=== PATIENT | male | born 1930 | race Caucasian/White ===

== ENCOUNTER 2016-08-28 12:16 | Inpatient (IN) | payer MEDICARE ==
[2016-08-28] MEDS ORDERED: Senokot S 8.6-50 MG TAB PO PRN (15:45)
[2016-08-28] MEDS ORDERED: Bisacodyl 5 MG TAB PO PRN ×2 (15:45→16:50)
[2016-08-28] MEDS ORDERED: Bisacodyl 10 MG SUPP PR PRN ×2 (15:46→16:50)
[2016-08-28] MEDS ORDERED: SENNOSIDES PO PRN (16:50)
[2016-08-28] MEDS ORDERED: DOCUSATE SODIUM PO PRN (16:50)
[2016-08-28] MEDS ORDERED: HYDROcodone/Acetaminophen 5/325 mg Tablet PO PRN (16:50)
[2016-08-28] MEDS ORDERED: DEXAMETHASONE 2 MG PO SCH (17:00)
[2016-08-28] MEDS: Dexamethasone 4 MG TAB PO SCH (18:26)
[2016-08-28] MEDS: Metoprolol Tartrate 25 MG TAB PO SCH (20:52)
[2016-08-28] MEDS: Docusate 100 MG CAP PO SCH (20:52)
[2016-08-28] MEDS: Levemir Flexpen 100 UNITS/ML PEN SC SCH (20:53)
[2016-08-28] MEDS ORDERED: Docusate 100 MG CAP PO SCH (21:00)
[2016-08-28] MEDS ORDERED: Non-Formulary Item 1 EACH (Insulin Detemir 100 Units/Ml [Levemir] 10 UNITS) SC SCH (21:00)
[2016-08-28] MEDS ORDERED: Metoprolol Tartrate 25 MG TAB PO SCH (21:00)
[2016-08-29] MEDS: HYDROcodone/Acetaminophen 5/325 mg Tablet PO PRN (07:45)
[2016-08-29] MEDS: Allopurinol 100 MG TAB PO SCH ×2 (07:46→07:48)
[2016-08-29] MEDS: Metoprolol Tartrate 25 MG TAB PO SCH ×2 (07:47→21:34)
[2016-08-29] MEDS: Tamsulosin HCl 0.4 MG CAP PO SCH (07:47)
[2016-08-29] MEDS: Dexamethasone 4 MG TAB PO SCH ×2 (07:48→17:17)
[2016-08-29] MEDS ORDERED: Non-Formulary Item 1 EACH (Insulin Detemir 100 Units/Ml [Levemir] 15 UNITS) SC SCH (09:00)
[2016-08-29] MEDS ORDERED: Tamsulosin HCl 0.4 MG CAP PO SCH (09:00)
[2016-08-29] MEDS ORDERED: ALLOPURINOL 300 MG PO SCH (09:00)
[2016-08-29] MEDS: Levemir Flexpen 100 UNITS/ML PEN SC SCH ×2 (09:28→21:33)
[2016-08-29] MEDS ORDERED: Insulin Regular 300 UNITS/3 ML VIAL ONE (12:52)
[2016-08-29] MEDS: HumaLOG 300 UNITS/3 ML VIAL SC PRN ×2 (12:58→17:39)
[2016-08-29] MEDS: Enoxaparin Sodium 30 MG/0.3 ML SYRINGE SC SCH (17:19)
[2016-08-29] MEDS: Docusate 100 MG CAP PO SCH (21:34)
[2016-08-30] MEDS: Nystatin Powder 15 GM BOT TOP PRN (01:56)
[2016-08-30] MEDS: HYDROcodone/Acetaminophen 5/325 mg Tablet PO PRN ×2 (02:42→15:04)
[2016-08-30] MEDS: Allopurinol 100 MG TAB PO SCH (08:49)
[2016-08-30] MEDS: Dexamethasone 4 MG TAB PO SCH ×2 (08:50→17:33)
[2016-08-30] MEDS: Metoprolol Tartrate 25 MG TAB PO SCH ×2 (08:50→20:47)
[2016-08-30] MEDS: Tamsulosin HCl 0.4 MG CAP PO SCH (08:50)
[2016-08-30] MEDS: Levemir Flexpen 100 UNITS/ML PEN SC SCH ×2 (08:51→20:49)
[2016-08-30] MEDS: HumaLOG 300 UNITS/3 ML VIAL SC PRN ×2 (12:38→17:54)
[2016-08-30] MEDS: Enoxaparin Sodium 30 MG/0.3 ML SYRINGE SC SCH (17:33)
[2016-08-30] MEDS: Docusate 100 MG CAP PO SCH (20:47)
[2016-08-31] MEDS: Levemir Flexpen 100 UNITS/ML PEN SC SCH ×2 (08:46→21:06)
[2016-08-31] MEDS: Dexamethasone 4 MG TAB PO SCH ×2 (08:49→17:54)
[2016-08-31] MEDS: Tamsulosin HCl 0.4 MG CAP PO SCH (08:50)
[2016-08-31] MEDS: Metoprolol Tartrate 25 MG TAB PO SCH ×2 (08:50→21:05)
[2016-08-31] MEDS: Allopurinol 100 MG TAB PO SCH (08:50)
[2016-08-31] MEDS: HYDROcodone/Acetaminophen 5/325 mg Tablet PO PRN (14:37)
[2016-08-31] MEDS: Enoxaparin Sodium 30 MG/0.3 ML SYRINGE SC SCH (17:54)
[2016-08-31] MEDS: Docusate 100 MG CAP PO SCH (21:05)
[2016-09-01] MEDS: HYDROcodone/Acetaminophen 5/325 mg Tablet PO PRN (01:13)
[2016-09-01] MEDS: Dexamethasone 4 MG TAB PO SCH ×2 (08:53→17:55)
[2016-09-01] MEDS: Metoprolol Tartrate 25 MG TAB PO SCH ×2 (08:54→21:22)
[2016-09-01] MEDS: Allopurinol 100 MG TAB PO SCH (08:56)
[2016-09-01] MEDS: Tamsulosin HCl 0.4 MG CAP PO SCH (08:58)
[2016-09-01] MEDS: Levemir Flexpen 100 UNITS/ML PEN SC SCH ×2 (08:59→21:22)
[2016-09-01] MEDS: HumaLOG 300 UNITS/3 ML VIAL SC PRN (09:05)
[2016-09-01] MEDS: Enoxaparin Sodium 30 MG/0.3 ML SYRINGE SC SCH (17:55)
[2016-09-01] MEDS: Docusate 100 MG CAP PO SCH (21:22)
[2016-09-02] MEDS: HYDROcodone/Acetaminophen 5/325 mg Tablet PO PRN ×2 (04:22→22:35)
[2016-09-02] MEDS: Allopurinol 100 MG TAB PO SCH (08:42)
[2016-09-02] MEDS: Dexamethasone 4 MG TAB PO SCH ×2 (08:43→18:50)
[2016-09-02] MEDS: Tamsulosin HCl 0.4 MG CAP PO SCH (08:43)
[2016-09-02] MEDS: Metoprolol Tartrate 25 MG TAB PO SCH ×2 (08:43→20:33)
[2016-09-02] MEDS: Levemir Flexpen 100 UNITS/ML PEN SC SCH ×2 (08:50→20:31)
[2016-09-02] MEDS: Nystatin Powder 15 GM BOT TOP PRN (15:47)
[2016-09-02] MEDS: Enoxaparin Sodium 30 MG/0.3 ML SYRINGE SC SCH (18:50)
[2016-09-02] MEDS: HumaLOG 300 UNITS/3 ML VIAL SC PRN (20:31)
[2016-09-02] MEDS: Docusate 100 MG CAP PO SCH (20:34)
[2016-09-03] MEDS: Colchicine 0.6 MG TAB PO SCH ×2 (08:10→10:48)
[2016-09-03] MEDS: Allopurinol 100 MG TAB PO SCH (08:11)
[2016-09-03] MEDS: Dexamethasone 4 MG TAB PO SCH (08:12)
[2016-09-03] MEDS: Metoprolol Tartrate 25 MG TAB PO SCH ×2 (08:12→20:41)
[2016-09-03] MEDS: Tamsulosin HCl 0.4 MG CAP PO SCH (08:12)
[2016-09-03] MEDS: HYDROcodone/Acetaminophen 5/325 mg Tablet PO PRN ×2 (08:13→22:53)
[2016-09-03] MEDS: Levemir Flexpen 100 UNITS/ML PEN SC SCH ×2 (08:14→20:40)
[2016-09-03 08:46] LABS: ALT (SGPT) 52 U/L (8-55); AST (SGOT) 22 U/L (5-34); Albumin 3.3 g/dL (3.4-4.8); Alkaline Phosphatase 48 U/L (40-150); Anion Gap 12 mmol/L (10-20); BUN (Urea Nitrogen) 16 mg/dL (8.4-25.7); Bilirubin, Total 1.1 mg/dL (0.2-1.2); Calc. Creatinine Clearance 58 mL/min (70-130); Calcium 8.9 mg/dL (7.8-10.44); Carbon Dioxide 25 mmol/L (23-31); Chloride 101 mmol/L (98-107); Estimated GFR-MDRD Greater than 90; Globulin 3.4 g/dL (2.4-3.5); Glucose 143 mg/dL (83-110); Potassium 4.1 mmol/L (3.5-5.1); Protein, Total 6.7 g/dL (5.8-8.1); Sodium 134 mmol/L (136-145); Uric Acid 2.2 mg/dL (3.5-7.2)
[2016-09-03 08:59] LABS: Hemoglobin 14.1 g/dL (14.0-18.0); Mean Corpuscular HGB CONC 33.5 g/dL (32.0-36.0); Mean Corpuscular Hemoglobin 26.4 pg (27.0-31.0); Mean Corpuscular Volume 78.7 fl (80.0-94.0); Mean Platelet Volume 7.8 fL (7.4-10.4); Platelet Count 170 thou/uL (130-400); RBC Distribution Width 12.6 % (11.5-14.5); Red Blood Cell (RBC) Count 5.33 mill/uL (4.70-6.10); White Blood Cell (WBC) Count 4.2 thou/uL (4.8-10.8)
[2016-09-03 09:26] LABS: Lymphocytes 7 % (21-51); MDiff Complete? YES; Monocytes 18 % (0-10); Neutrophil 75 % (42-75); PLT Morphology Comment Appears Adequate; RBC Morphology Normal
[2016-09-03] MEDS: HumaLOG 300 UNITS/3 ML VIAL SC PRN (17:44)
[2016-09-03] MEDS: Enoxaparin Sodium 30 MG/0.3 ML SYRINGE SC SCH (17:46)
[2016-09-03] MEDS: Docusate 100 MG CAP PO SCH (20:41)
[2016-09-03] MEDS: Nystatin Powder 15 GM BOT TOP PRN (20:44)
--- NOTE | 2016-09-03 21:18 | RAD ---
RIGHT KNEE TWO VIEWS: Date: 09-03-16 FINDINGS: There is marked swelling around the knee including a large joint effusion. There is some faint calci fication seen in what I presumed to be the suprapatellar bursa. Moderately severe arthritic changes are present consisting of osteophytes and some medial joint space narrowing. Large patellofemoral os teophytes are present. No fracture or area of bony destruction was seen. Dense arterial calcificatio ns are noted. IMPRESSION: 1. Significant swelling and significant joint effusion. 2. Moderate arthritic changes as noted. POS: HOME
[2016-09-04] MEDS: Allopurinol 100 MG TAB PO SCH (08:28)
[2016-09-04] MEDS: Tamsulosin HCl 0.4 MG CAP PO SCH (08:29)
[2016-09-04] MEDS: Dexamethasone 4 MG TAB PO SCH (08:29)
[2016-09-04] MEDS: Metoprolol Tartrate 25 MG TAB PO SCH ×2 (08:29→20:57)
[2016-09-04] MEDS: traMADol HCl 50 MG TAB PO PRN (08:30)
[2016-09-04] MEDS: Levemir Flexpen 100 UNITS/ML PEN SC SCH ×2 (08:33→20:56)
[2016-09-04] MEDS ORDERED: Polyethylene Glycol 3350 17 GM Packet PO SCH (10:00)
[2016-09-04] MEDS ORDERED: Colchicine 0.6 MG TAB PO SCH ×2 (10:00→11:00)
[2016-09-04] MEDS: HYDROcodone/Acetaminophen 5/325 mg Tablet PO PRN (14:31)
[2016-09-04] MEDS: Enoxaparin Sodium 30 MG/0.3 ML SYRINGE SC SCH (17:58)
[2016-09-04] MEDS: HumaLOG 300 UNITS/3 ML VIAL SC PRN (17:59)
[2016-09-04] MEDS: Docusate 100 MG CAP PO SCH (20:57)
[2016-09-05] MEDS: Metoprolol Tartrate 25 MG TAB PO SCH ×2 (08:58→20:54)
[2016-09-05] MEDS: Tamsulosin HCl 0.4 MG CAP PO SCH (08:58)
[2016-09-05] MEDS: Allopurinol 100 MG TAB PO SCH (08:58)
[2016-09-05] MEDS: Dexamethasone 4 MG TAB PO SCH (08:59)
[2016-09-05] MEDS: Polyethylene Glycol 3350 17 GM Packet PO SCH (09:00)
[2016-09-05] MEDS: Levemir Flexpen 100 UNITS/ML PEN SC SCH ×2 (09:00→21:00)
[2016-09-05] MEDS: HYDROcodone/Acetaminophen 5/325 mg Tablet PO PRN ×2 (14:04→20:59)
[2016-09-05] MEDS: HumaLOG 300 UNITS/3 ML VIAL SC PRN (17:46)
[2016-09-05] MEDS: Enoxaparin Sodium 30 MG/0.3 ML SYRINGE SC SCH (19:25)
[2016-09-05] MEDS: Docusate 100 MG CAP PO SCH (20:54)
[2016-09-06] MEDS: HYDROcodone/Acetaminophen 5/325 mg Tablet PO PRN ×2 (05:00→14:31)
[2016-09-06] MEDS: Tamsulosin HCl 0.4 MG CAP PO SCH (09:19)
[2016-09-06] MEDS: Metoprolol Tartrate 25 MG TAB PO SCH ×2 (09:20→21:41)
[2016-09-06] MEDS: Polyethylene Glycol 3350 17 GM Packet PO SCH (09:20)
[2016-09-06] MEDS: Levemir Flexpen 100 UNITS/ML PEN SC SCH ×2 (09:23→21:41)
[2016-09-06] MEDS: Dexamethasone 4 MG TAB PO SCH ×2 (09:29→09:30)
[2016-09-06] MEDS: Allopurinol 100 MG TAB PO SCH (09:31)
[2016-09-06] MEDS: HumaLOG 300 UNITS/3 ML VIAL SC PRN (18:02)
[2016-09-06] MEDS: Enoxaparin Sodium 30 MG/0.3 ML SYRINGE SC SCH (18:37)
[2016-09-06] MEDS: Docusate 100 MG CAP PO SCH (21:41)
[2016-09-07] MEDS ORDERED: Dexamethasone 4 MG TAB PO SCH (09:00)
[2016-09-07] MEDS: Levemir Flexpen 100 UNITS/ML PEN SC SCH ×2 (09:33→21:08)
[2016-09-07] MEDS: Metoprolol Tartrate 25 MG TAB PO SCH ×2 (09:34→21:05)
[2016-09-07] MEDS: Tamsulosin HCl 0.4 MG CAP PO SCH (09:34)
[2016-09-07] MEDS: Allopurinol 100 MG TAB PO SCH (09:34)
[2016-09-07] MEDS: Polyethylene Glycol 3350 17 GM Packet PO SCH (09:39)
[2016-09-07] MEDS: HYDROcodone/Acetaminophen 5/325 mg Tablet PO PRN ×2 (14:19→23:23)
[2016-09-07] MEDS: HumaLOG 300 UNITS/3 ML VIAL SC PRN ×2 (17:58→21:15)
[2016-09-07] MEDS: Enoxaparin Sodium 30 MG/0.3 ML SYRINGE SC SCH (17:59)
[2016-09-07] MEDS: Docusate 100 MG CAP PO SCH (21:05)
[2016-09-08] MEDS: Allopurinol 100 MG TAB PO SCH (08:30)
[2016-09-08] MEDS: Tamsulosin HCl 0.4 MG CAP PO SCH (08:30)
[2016-09-08] MEDS: Dexamethasone 4 MG TAB PO SCH (08:31)
[2016-09-08] MEDS: Metoprolol Tartrate 25 MG TAB PO SCH ×2 (08:31→21:21)
[2016-09-08] MEDS: Polyethylene Glycol 3350 17 GM Packet PO SCH (08:33)
[2016-09-08] MEDS: Levemir Flexpen 100 UNITS/ML PEN SC SCH ×2 (08:34→21:20)
[2016-09-08] MEDS: HumaLOG 300 UNITS/3 ML VIAL SC PRN (18:10)
[2016-09-08] MEDS: Enoxaparin Sodium 30 MG/0.3 ML SYRINGE SC SCH (18:12)
[2016-09-08] MEDS: Docusate 100 MG CAP PO SCH (21:21)
[2016-09-09] MEDS: Levemir Flexpen 100 UNITS/ML PEN SC SCH ×2 (08:30→21:05)
[2016-09-09] MEDS: Allopurinol 100 MG TAB PO SCH (08:32)
[2016-09-09] MEDS: Tamsulosin HCl 0.4 MG CAP PO SCH (08:32)
[2016-09-09] MEDS: Metoprolol Tartrate 25 MG TAB PO SCH ×2 (08:33→21:05)
[2016-09-09] MEDS: Polyethylene Glycol 3350 17 GM Packet PO SCH (08:33)
[2016-09-09] MEDS: Enoxaparin Sodium 30 MG/0.3 ML SYRINGE SC SCH (17:31)
[2016-09-09] MEDS: HumaLOG 300 UNITS/3 ML VIAL SC PRN (17:53)
[2016-09-09] MEDS: Docusate 100 MG CAP PO SCH (21:06)
[2016-09-10] MEDS: Dexamethasone 4 MG TAB PO SCH (09:49)
[2016-09-10] MEDS: Allopurinol 100 MG TAB PO SCH (09:50)
[2016-09-10] MEDS: Tamsulosin HCl 0.4 MG CAP PO SCH (09:50)
[2016-09-10] MEDS: Metoprolol Tartrate 25 MG TAB PO SCH ×3 (09:51→21:02)
[2016-09-10] MEDS: Levemir Flexpen 100 UNITS/ML PEN SC SCH ×2 (09:55→21:02)
[2016-09-10] MEDS: Polyethylene Glycol 3350 17 GM Packet PO SCH (09:55)
[2016-09-10] MEDS: HYDROcodone/Acetaminophen 5/325 mg Tablet PO PRN (14:26)
[2016-09-10] MEDS: Enoxaparin Sodium 30 MG/0.3 ML SYRINGE SC SCH (17:51)
[2016-09-10] MEDS: HumaLOG 300 UNITS/3 ML VIAL SC PRN (17:52)
[2016-09-10] MEDS: Docusate 100 MG CAP PO SCH (21:01)
[2016-09-11] MEDS: traMADol HCl 50 MG TAB PO PRN (02:08)
[2016-09-11] MEDS: Polyethylene Glycol 3350 17 GM Packet PO SCH (08:52)
[2016-09-11] MEDS: Allopurinol 100 MG TAB PO SCH (08:53)
[2016-09-11] MEDS: Tamsulosin HCl 0.4 MG CAP PO SCH (08:53)
[2016-09-11] MEDS: Metoprolol Tartrate 25 MG TAB PO SCH ×2 (08:53→21:33)
[2016-09-11] MEDS: Levemir Flexpen 100 UNITS/ML PEN SC SCH ×2 (08:54→21:33)
[2016-09-11] MEDS: HYDROcodone/Acetaminophen 5/325 mg Tablet PO PRN (13:32)
[2016-09-11] MEDS: Enoxaparin Sodium 30 MG/0.3 ML SYRINGE SC SCH (16:46)
[2016-09-11] MEDS: HumaLOG 300 UNITS/3 ML VIAL SC PRN (17:15)
[2016-09-11] MEDS: Docusate 100 MG CAP PO SCH (21:33)
[2016-09-12] MEDS: Tamsulosin HCl 0.4 MG CAP PO SCH (08:53)
[2016-09-12] MEDS: Dexamethasone 4 MG TAB PO SCH (08:53)
[2016-09-12] MEDS: Allopurinol 100 MG TAB PO SCH (08:54)
[2016-09-12] MEDS: Metoprolol Tartrate 25 MG TAB PO SCH ×2 (08:54→20:25)
[2016-09-12] MEDS: Polyethylene Glycol 3350 17 GM Packet PO SCH (08:56)
[2016-09-12] MEDS: Levemir Flexpen 100 UNITS/ML PEN SC SCH ×2 (08:59→20:29)
[2016-09-12 11:57] LABS: Bilirubin Negative (Negative); Blood, Urine Large (Negative); Clarity Cloudy (Clear); Glucose, Urine (Dipstick) Negative (Negative); Leukocyte Large (Negative); Nitrite Positive (Negative); Protein, Urine (Dipstick) 100 mg/dL (Neg-Trace)
[2016-09-12 12:05] LABS: Bacteria/HPF 2+ HPF (None Seen)
[2016-09-12 12:06] LABS: Crystals/HPF 1+ CA OXALATE HPF (Negative); Squamous Epithelial 0-3 HPF (0-3)
[2016-09-12] MEDS: HYDROcodone/Acetaminophen 5/325 mg Tablet PO PRN (14:53)
[2016-09-12] MEDS: Neomycin-Polymyxin-Hc 7.5 ML BOT R EYE SCH ×2 (18:21→20:26)
[2016-09-12] MEDS: HumaLOG 300 UNITS/3 ML VIAL SC PRN (18:32)
[2016-09-12] MEDS: Enoxaparin Sodium 30 MG/0.3 ML SYRINGE SC SCH (18:33)
[2016-09-12] MEDS: Docusate 100 MG CAP PO SCH (20:25)
[2016-09-13] MEDS: Neomycin-Polymyxin-Hc 7.5 ML BOT R EYE SCH ×7 (02:00→21:13)
[2016-09-13] MEDS: Levemir Flexpen 100 UNITS/ML PEN SC SCH ×2 (08:34→21:39)
[2016-09-13] MEDS: Metoprolol Tartrate 25 MG TAB PO SCH ×2 (08:37→21:12)
[2016-09-13] MEDS: Tamsulosin HCl 0.4 MG CAP PO SCH (08:37)
[2016-09-13] MEDS: Sulfameth/Trimethoprim DS 800-160mg TAB PO SCH ×2 (08:37→21:12)
[2016-09-13] MEDS: Polyethylene Glycol 3350 17 GM Packet PO SCH (08:38)
[2016-09-13] MEDS: Allopurinol 100 MG TAB PO SCH (08:38)
[2016-09-13] MEDS: Enoxaparin Sodium 30 MG/0.3 ML SYRINGE SC SCH (17:47)
[2016-09-13] MEDS: HumaLOG 300 UNITS/3 ML VIAL SC PRN (17:52)
[2016-09-13] MEDS: Docusate 100 MG CAP PO SCH (21:12)
[2016-09-14] MEDS: Neomycin-Polymyxin-Hc 7.5 ML BOT R EYE SCH ×6 (01:03→20:54)
[2016-09-14] MEDS: Levemir Flexpen 100 UNITS/ML PEN SC SCH ×2 (08:51→20:54)
[2016-09-14] MEDS: Sulfameth/Trimethoprim DS 800-160mg TAB PO SCH ×2 (08:54→20:53)
[2016-09-14] MEDS: Polyethylene Glycol 3350 17 GM Packet PO SCH (08:54)
[2016-09-14] MEDS: Metoprolol Tartrate 25 MG TAB PO SCH ×2 (08:54→20:52)
[2016-09-14] MEDS: Allopurinol 100 MG TAB PO SCH (08:54)
[2016-09-14] MEDS: Tamsulosin HCl 0.4 MG CAP PO SCH (08:54)
[2016-09-14] MEDS: Dexamethasone 4 MG TAB PO SCH (08:54)
[2016-09-14] MEDS: traMADol HCl 50 MG TAB PO PRN (14:24)
[2016-09-14] MEDS: Enoxaparin Sodium 30 MG/0.3 ML SYRINGE SC SCH (19:13)
[2016-09-14] MEDS: Docusate 100 MG CAP PO SCH (20:52)
[2016-09-15] MEDS: Neomycin-Polymyxin-Hc 7.5 ML BOT R EYE SCH ×6 (01:23→21:08)
[2016-09-15] MEDS: Levemir Flexpen 100 UNITS/ML PEN SC SCH ×2 (08:43→21:05)
[2016-09-15] MEDS: Tamsulosin HCl 0.4 MG CAP PO SCH (08:43)
[2016-09-15] MEDS: Metoprolol Tartrate 25 MG TAB PO SCH ×2 (08:44→21:00)
[2016-09-15] MEDS: Sulfameth/Trimethoprim DS 800-160mg TAB PO SCH ×2 (08:44→21:01)
[2016-09-15] MEDS: Allopurinol 100 MG TAB PO SCH (08:44)
[2016-09-15] MEDS: Polyethylene Glycol 3350 17 GM Packet PO SCH (08:46)
[2016-09-15] MEDS: Enoxaparin Sodium 30 MG/0.3 ML SYRINGE SC SCH (17:36)
[2016-09-15] MEDS: Docusate 100 MG CAP PO SCH (21:00)
[2016-09-15] MEDS: HYDROcodone/Acetaminophen 5/325 mg Tablet PO PRN (22:50)
[2016-09-15] MEDS: Lorazepam 0.5 MG TAB PO PRN (23:36)
[2016-09-16] MEDS: Neomycin-Polymyxin-Hc 7.5 ML BOT R EYE SCH ×5 (05:56→20:40)
[2016-09-16] MEDS: Metoprolol Tartrate 25 MG TAB PO SCH ×2 (09:00→20:39)
[2016-09-16] MEDS: Allopurinol 100 MG TAB PO SCH (09:00)
[2016-09-16] MEDS: Levemir Flexpen 100 UNITS/ML PEN SC SCH ×2 (09:01→23:29)
[2016-09-16] MEDS: Dexamethasone 4 MG TAB PO SCH (09:01)
[2016-09-16] MEDS: Sulfameth/Trimethoprim DS 800-160mg TAB PO SCH ×2 (09:01→20:37)
[2016-09-16] MEDS: Tamsulosin HCl 0.4 MG CAP PO SCH (09:01)
[2016-09-16] MEDS: Polyethylene Glycol 3350 17 GM Packet PO SCH (09:03)
[2016-09-16] MEDS: HumaLOG 300 UNITS/3 ML VIAL SC PRN ×2 (17:30→20:46)
[2016-09-16] MEDS: Enoxaparin Sodium 30 MG/0.3 ML SYRINGE SC SCH (17:44)
[2016-09-16] MEDS: Docusate 100 MG CAP PO SCH (20:38)
[2016-09-17] MEDS: Neomycin-Polymyxin-Hc 7.5 ML BOT R EYE SCH ×6 (02:31→21:16)
[2016-09-17] MEDS: Allopurinol 100 MG TAB PO SCH (07:52)
[2016-09-17] MEDS: Tamsulosin HCl 0.4 MG CAP PO SCH (07:54)
[2016-09-17] MEDS: Sulfameth/Trimethoprim DS 800-160mg TAB PO SCH (07:54)
[2016-09-17] MEDS: Metoprolol Tartrate 25 MG TAB PO SCH ×2 (07:54→21:17)
[2016-09-17] MEDS: Polyethylene Glycol 3350 17 GM Packet PO SCH (07:55)
[2016-09-17] MEDS: Levemir Flexpen 100 UNITS/ML PEN SC SCH ×2 (07:58→21:15)
[2016-09-17] MEDS: Enoxaparin Sodium 30 MG/0.3 ML SYRINGE SC SCH (18:40)
[2016-09-17] MEDS: HumaLOG 300 UNITS/3 ML VIAL SC PRN (18:40)
[2016-09-17] MEDS: Cephalexin 250 MG CAP PO SCH (21:16)
[2016-09-17] MEDS: Docusate 100 MG CAP PO SCH (21:16)
[2016-09-18] MEDS: Neomycin-Polymyxin-Hc 7.5 ML BOT R EYE SCH ×7 (02:44→20:19)
[2016-09-18] MEDS: Polyethylene Glycol 3350 17 GM Packet PO SCH (08:45)
[2016-09-18] MEDS: Tamsulosin HCl 0.4 MG CAP PO SCH (08:45)
[2016-09-18] MEDS: Cephalexin 250 MG CAP PO SCH ×2 (08:46→20:19)
[2016-09-18] MEDS: Metoprolol Tartrate 25 MG TAB PO SCH ×2 (08:46→20:19)
[2016-09-18] MEDS: Allopurinol 100 MG TAB PO SCH (08:46)
[2016-09-18] MEDS: Dexamethasone 4 MG TAB PO SCH (08:46)
[2016-09-18] MEDS: Levemir Flexpen 100 UNITS/ML PEN SC SCH (08:53)
[2016-09-18] MEDS: Enoxaparin Sodium 30 MG/0.3 ML SYRINGE SC SCH (17:33)
[2016-09-18] MEDS: Docusate 100 MG CAP PO SCH (20:20)
[2016-09-18] MEDS: HumaLOG 300 UNITS/3 ML VIAL SC PRN (20:31)
[2016-09-19] MEDS: Neomycin-Polymyxin-Hc 7.5 ML BOT R EYE SCH ×6 (00:56→20:47)
[2016-09-19] MEDS: Cephalexin 250 MG CAP PO SCH ×2 (08:35→20:48)
[2016-09-19] MEDS: Tamsulosin HCl 0.4 MG CAP PO SCH (08:35)
[2016-09-19] MEDS: Levemir Flexpen 100 UNITS/ML PEN SC SCH (08:35)
[2016-09-19] MEDS: Metoprolol Tartrate 25 MG TAB PO SCH ×2 (08:35→20:47)
[2016-09-19] MEDS: Allopurinol 100 MG TAB PO SCH (08:35)
[2016-09-19] MEDS: Polyethylene Glycol 3350 17 GM Packet PO SCH (10:17)
[2016-09-19] MEDS: traMADol HCl 50 MG TAB PO PRN (15:49)
[2016-09-19] MEDS: Enoxaparin Sodium 30 MG/0.3 ML SYRINGE SC SCH (17:35)
[2016-09-19] MEDS: HumaLOG 300 UNITS/3 ML VIAL SC PRN (17:37)
[2016-09-19] MEDS: Docusate 100 MG CAP PO SCH (20:48)
[2016-09-20] MEDS: Neomycin-Polymyxin-Hc 7.5 ML BOT R EYE SCH ×6 (01:44→22:12)
[2016-09-20] MEDS: Levemir Flexpen 100 UNITS/ML PEN SC SCH (08:29)
[2016-09-20] MEDS: Allopurinol 100 MG TAB PO SCH (08:31)
[2016-09-20] MEDS: Dexamethasone 4 MG TAB PO SCH (08:32)
[2016-09-20] MEDS: Polyethylene Glycol 3350 17 GM Packet PO SCH (08:33)
[2016-09-20] MEDS: Cephalexin 250 MG CAP PO SCH ×2 (08:33→22:12)
[2016-09-20] MEDS: Tamsulosin HCl 0.4 MG CAP PO SCH (08:33)
[2016-09-20] MEDS: Metoprolol Tartrate 25 MG TAB PO SCH ×2 (08:33→22:12)
[2016-09-20] MEDS: HumaLOG 300 UNITS/3 ML VIAL SC PRN (17:35)
[2016-09-20] MEDS: Enoxaparin Sodium 30 MG/0.3 ML SYRINGE SC SCH (18:27)
[2016-09-20] MEDS: Docusate 100 MG CAP PO SCH (22:12)
[2016-09-21] MEDS: Neomycin-Polymyxin-Hc 7.5 ML BOT R EYE SCH ×6 (01:47→21:28)
[2016-09-21] MEDS: Cephalexin 250 MG CAP PO SCH ×2 (09:40→21:25)
[2016-09-21] MEDS: Allopurinol 100 MG TAB PO SCH (09:41)
[2016-09-21] MEDS: Metoprolol Tartrate 25 MG TAB PO SCH ×2 (09:41→21:28)
[2016-09-21] MEDS: Levemir Flexpen 100 UNITS/ML PEN SC SCH (09:41)
[2016-09-21] MEDS: Tamsulosin HCl 0.4 MG CAP PO SCH (09:41)
[2016-09-21] MEDS: Polyethylene Glycol 3350 17 GM Packet PO SCH (09:55)
[2016-09-21] MEDS: Enoxaparin Sodium 30 MG/0.3 ML SYRINGE SC SCH (17:52)
[2016-09-21] MEDS ORDERED: Neomycin-Polymyxin-Hc 7.5 ML BOT ONE (18:02)
[2016-09-21] MEDS: Docusate 100 MG CAP PO SCH (21:28)
[2016-09-22] MEDS: Neomycin-Polymyxin-Hc 7.5 ML BOT R EYE SCH ×6 (00:29→20:43)
[2016-09-22] MEDS: Dexamethasone 4 MG TAB PO SCH (09:09)
[2016-09-22] MEDS: Tamsulosin HCl 0.4 MG CAP PO SCH (09:09)
[2016-09-22] MEDS: Allopurinol 100 MG TAB PO SCH (09:10)
[2016-09-22] MEDS: Cephalexin 250 MG CAP PO SCH ×2 (09:10→20:41)
[2016-09-22] MEDS: Metoprolol Tartrate 25 MG TAB PO SCH ×2 (09:11→20:42)
[2016-09-22] MEDS: Levemir Flexpen 100 UNITS/ML PEN SC SCH (09:14)
[2016-09-22] MEDS: Polyethylene Glycol 3350 17 GM Packet PO SCH (09:42)
[2016-09-22] MEDS: Enoxaparin Sodium 30 MG/0.3 ML SYRINGE SC SCH (17:31)
[2016-09-22] MEDS: HumaLOG 300 UNITS/3 ML VIAL SC PRN (17:34)
[2016-09-22] MEDS: Docusate 100 MG CAP PO SCH (20:42)
[2016-09-23] MEDS: Neomycin-Polymyxin-Hc 7.5 ML BOT R EYE SCH ×6 (01:21→21:33)
[2016-09-23] MEDS: Polyethylene Glycol 3350 17 GM Packet PO SCH (09:04)
[2016-09-23] MEDS: Metoprolol Tartrate 25 MG TAB PO SCH ×2 (09:05→21:32)
[2016-09-23] MEDS: Allopurinol 100 MG TAB PO SCH (09:05)
[2016-09-23] MEDS: Tamsulosin HCl 0.4 MG CAP PO SCH (09:06)
[2016-09-23] MEDS: Cephalexin 250 MG CAP PO SCH ×2 (09:06→21:32)
[2016-09-23] MEDS: Levemir Flexpen 100 UNITS/ML PEN SC SCH (09:12)
[2016-09-23] MEDS: Lorazepam 0.5 MG TAB PO PRN (10:38)
[2016-09-23] MEDS: HumaLOG 300 UNITS/3 ML VIAL SC PRN (17:20)
[2016-09-23] MEDS: Enoxaparin Sodium 30 MG/0.3 ML SYRINGE SC SCH (17:21)
[2016-09-23] MEDS: Famotidine 20 MG TAB PO SCH (21:32)
[2016-09-23] MEDS: Nystatin Cream 15 GM TUBE TOP PRN (21:32)
[2016-09-23] MEDS: Docusate 100 MG CAP PO SCH (21:33)
[2016-09-24] MEDS: Neomycin-Polymyxin-Hc 7.5 ML BOT R EYE SCH ×6 (02:08→21:21)
[2016-09-24 03:25] VITALS: BMI 21.2
[2016-09-24] MEDS: Allopurinol 100 MG TAB PO SCH (09:30)
[2016-09-24] MEDS: Dexamethasone 4 MG TAB PO SCH (09:31)
[2016-09-24] MEDS: Cephalexin 250 MG CAP PO SCH ×2 (09:31→21:21)
[2016-09-24] MEDS: Tamsulosin HCl 0.4 MG CAP PO SCH (09:32)
[2016-09-24] MEDS: Metoprolol Tartrate 25 MG TAB PO SCH ×2 (09:32→21:21)
[2016-09-24] MEDS: Famotidine 20 MG TAB PO SCH ×2 (09:32→21:20)
[2016-09-24] MEDS: Polyethylene Glycol 3350 17 GM Packet PO SCH (09:33)
[2016-09-24] MEDS: Levemir Flexpen 100 UNITS/ML PEN SC SCH (09:35)
[2016-09-24] MEDS: Enoxaparin Sodium 30 MG/0.3 ML SYRINGE SC SCH (18:13)
[2016-09-24] MEDS: HumaLOG 300 UNITS/3 ML VIAL SC PRN (18:14)
[2016-09-24] MEDS: Nystatin Cream 15 GM TUBE TOP PRN (21:21)
[2016-09-24] MEDS: Docusate 100 MG CAP PO SCH (21:22)
[2016-09-25] MEDS: Neomycin-Polymyxin-Hc 7.5 ML BOT R EYE SCH ×4 (01:53→12:59)
[2016-09-25] MEDS: Levemir Flexpen 100 UNITS/ML PEN SC SCH (08:32)
[2016-09-25] MEDS: Cephalexin 250 MG CAP PO SCH ×2 (08:34→22:04)
[2016-09-25] MEDS: Metoprolol Tartrate 25 MG TAB PO SCH ×2 (08:34→22:04)
[2016-09-25] MEDS: Allopurinol 100 MG TAB PO SCH (08:34)
[2016-09-25] MEDS: Famotidine 20 MG TAB PO SCH ×2 (08:35→22:05)
[2016-09-25] MEDS: Tamsulosin HCl 0.4 MG CAP PO SCH (08:35)
[2016-09-25] MEDS: Lorazepam 0.5 MG TAB PO PRN (08:35)
[2016-09-25] MEDS: Polyethylene Glycol 3350 17 GM Packet PO SCH (08:36)
[2016-09-25] MEDS: Enoxaparin Sodium 30 MG/0.3 ML SYRINGE SC SCH (18:20)
[2016-09-25] MEDS: Nystatin Cream 15 GM TUBE TOP PRN (22:05)
[2016-09-25] MEDS: Docusate 100 MG CAP PO SCH (22:05)
[2016-09-26] MEDS: Levemir Flexpen 100 UNITS/ML PEN SC SCH (08:33)
[2016-09-26] MEDS: Cephalexin 250 MG CAP PO SCH (08:39)
[2016-09-26] MEDS: Famotidine 20 MG TAB PO SCH ×2 (08:39→21:11)
[2016-09-26] MEDS: Metoprolol Tartrate 25 MG TAB PO SCH ×2 (08:39→21:12)
[2016-09-26] MEDS: Dexamethasone 4 MG TAB PO SCH (08:39)
[2016-09-26] MEDS: Tamsulosin HCl 0.4 MG CAP PO SCH (08:40)
[2016-09-26] MEDS: Allopurinol 100 MG TAB PO SCH (08:40)
[2016-09-26] MEDS: Polyethylene Glycol 3350 17 GM Packet PO SCH (08:41)
[2016-09-26] MEDS: Enoxaparin Sodium 30 MG/0.3 ML SYRINGE SC SCH (18:22)
[2016-09-26] MEDS: Docusate 100 MG CAP PO SCH (21:10)
[2016-09-26] MEDS: Nystatin Cream 15 GM TUBE TOP PRN (21:42)
[2016-09-27] MEDS: Allopurinol 100 MG TAB PO SCH (08:25)
[2016-09-27] MEDS: Levemir Flexpen 100 UNITS/ML PEN SC SCH (08:25)
[2016-09-27] MEDS: Tamsulosin HCl 0.4 MG CAP PO SCH (08:25)
[2016-09-27] MEDS: Famotidine 20 MG TAB PO SCH ×2 (08:25→20:33)
[2016-09-27] MEDS: Metoprolol Tartrate 25 MG TAB PO SCH ×2 (08:25→20:33)
[2016-09-27] MEDS: Polyethylene Glycol 3350 17 GM Packet PO SCH (18:17)
[2016-09-27] MEDS: Enoxaparin Sodium 30 MG/0.3 ML SYRINGE SC SCH (18:18)
[2016-09-27] MEDS: Docusate 100 MG CAP PO SCH (20:33)
[2016-09-27] MEDS: Nystatin Cream 15 GM TUBE TOP PRN ×2 (23:34→23:35)
[2016-09-27] MEDS: Lorazepam 0.5 MG TAB PO PRN (23:35)
[2016-09-27] MEDS: Nystatin Powder 15 GM BOT TOP PRN ×2 (23:35→23:36)
[2016-09-28] MEDS: traMADol HCl 50 MG TAB PO PRN (03:11)
[2016-09-28] MEDS: Nystatin Powder 15 GM BOT TOP PRN ×3 (03:14→21:30)
[2016-09-28] MEDS: Nystatin Cream 15 GM TUBE TOP PRN ×2 (03:14→18:35)
[2016-09-28] MEDS: Levemir Flexpen 100 UNITS/ML PEN SC SCH (10:26)
[2016-09-28] MEDS: Allopurinol 100 MG TAB PO SCH (10:28)
[2016-09-28] MEDS: Tamsulosin HCl 0.4 MG CAP PO SCH (10:29)
[2016-09-28] MEDS: Metoprolol Tartrate 25 MG TAB PO SCH ×2 (10:29→21:27)
[2016-09-28] MEDS: Polyethylene Glycol 3350 17 GM Packet PO SCH (10:29)
[2016-09-28] MEDS: Enoxaparin Sodium 30 MG/0.3 ML SYRINGE SC SCH (18:35)
[2016-09-28] MEDS: Docusate 100 MG CAP PO SCH (21:27)
[2016-09-29] MEDS: HYDROcodone/Acetaminophen 5/325 mg Tablet PO PRN ×2 (00:52→11:24)
[2016-09-29] MEDS: Lorazepam 0.5 MG TAB PO PRN ×2 (00:52→08:49)
[2016-09-29 06:17] LABS: #Eosinphils 0.1 thou/uL (0.0-0.7); #Lymphocytes 1.3 thou/uL (1.20-3.40); #Monocytes 0.5 thou/uL (0.11-0.59); #Neutrophils 1.6 thou/uL (1.40-6.50); %Eosinophils 2.8 % (0.0-10.0); %Lymphocytes 36.4 % (21.0-51.0); %Monocytes 14.9 % (0.0-10.0); Hemoglobin 12.5 g/dL (14.0-18.0); Mean Corpuscular HGB CONC 34.5 g/dL (32.0-36.0); Mean Corpuscular Hemoglobin 27.2 pg (27.0-31.0); Mean Corpuscular Volume 78.9 fl (80.0-94.0); Mean Platelet Volume 6.9 fL (7.4-10.4); Platelet Count 135 thou/uL (130-400); RBC Distribution Width 14.9 % (11.5-14.5); Red Blood Cell (RBC) Count 4.59 mill/uL (4.70-6.10); White Blood Cell (WBC) Count 3.6 thou/uL (4.8-10.8)
[2016-09-29 07:04] LABS: ALT (SGPT) 44 U/L (8-55); AST (SGOT) 20 U/L (5-34); Albumin 3.1 g/dL (3.4-4.8); Alkaline Phosphatase 52 U/L (40-150); Anion Gap 15 mmol/L (10-20); BUN (Urea Nitrogen) 19 mg/dL (8.4-25.7); Bilirubin, Total 0.6 mg/dL (0.2-1.2); Calc. Creatinine Clearance 60 mL/min (70-130); Calcium 8.5 mg/dL (7.8-10.44); Carbon Dioxide 21 mmol/L (23-31); Chloride 100 mmol/L (98-107); Estimated GFR-MDRD Greater than 90; Globulin 2.5 g/dL (2.4-3.5); Glucose 81 mg/dL (83-110); Protein, Total 5.6 g/dL (5.8-8.1); Sodium 132 mmol/L (136-145)
[2016-09-29] MEDS: Allopurinol 100 MG TAB PO SCH (08:46)
[2016-09-29] MEDS: Metoprolol Tartrate 25 MG TAB PO SCH ×2 (08:46→18:15)
[2016-09-29] MEDS: Tamsulosin HCl 0.4 MG CAP PO SCH (08:46)
[2016-09-29] MEDS: Fluconazole 100 MG TAB PO SCH (08:47)
[2016-09-29] MEDS: Polyethylene Glycol 3350 17 GM Packet PO SCH (08:47)
[2016-09-29] MEDS: Levemir Flexpen 100 UNITS/ML PEN SC SCH (08:51)
[2016-09-29] MEDS ORDERED: Iopamidol 370 76% 100 ML VIAL ONE (09:00)
[2016-09-29] MEDS ORDERED: Sodium Chloride 0.9% 1,000 ML IV SCH ×2 (11:30→19:45)
[2016-09-29 11:55] LABS: Bilirubin Negative (Negative); Blood, Urine Moderate (Negative); Glucose, Urine (Dipstick) Negative (Negative); Leukocyte Large (Negative); Nitrite Positive (Negative); Protein, Urine (Dipstick) 100 mg/dL (Neg-Trace); Specific Gravity, Urine 1.015 (1.005-1.030); pH, Urine 6.5 (5.0-9.0)
[2016-09-29 11:56] LABS: Clarity Hazy (Clear)
[2016-09-29] MEDS ORDERED: Sodium Chloride 0.9% 20 ML ONE (11:56)
[2016-09-29 11:57] LABS: Bacteria/HPF 1+ HPF (None Seen); RBC/HPF 21-50 HPF (0-3); Squamous Epithelial 0-3 HPF (0-3); WBC/HPF 21-50 HPF (0-3)
[2016-09-29] MEDS: Acetaminophen 500 MG TAB PO PRN ×2 (12:47→18:54)
[2016-09-29] MEDS ORDERED: cefTRIAXone\\ROCEPHIN 1 GM in Sodium Chloride 0.9% 100 ML IVPB SCH (13:00)
--- NOTE | 2016-09-29 15:00 | RAD ---
PORTABLE CHEST: Date: 09/29/16 Comparison made with the 08/18/16 chest x-ray. I also reviewed the 08/22/16 CT of the thorax which s howed a left paravertebral mass. FINDINGS: The mass is really not clearly visible on the chest film. There is currently no sign of pneumonia. T he lungs are clear and there are no effusions. The heart size is normal. The trachea is midline. IMPRESSION: No acute thoracic findings. Known paravertebral mass is not visible on this plain radiographic study . POS: HOME
[2016-09-29] MEDS: Enoxaparin Sodium 30 MG/0.3 ML SYRINGE SC SCH (18:22)
[2016-09-29] MEDS ORDERED: Dextrose 5 %-0.45 % NaCl 1,000 ML IV SCH (20:00)
[2016-09-29] MEDS ORDERED: Milk Of Magnesia 30 ML UDCUP PO PRN (21:03)
--- NOTE | 2016-09-29 21:35 | CT ---
CT ABDOMEN AND PELVIS WITH CONTRAST 09/29/[address] of the abdomen and pelvis was performed for evaluation of abdominal pain. Axial slices wer e done after getting IV contrast. Oral contrast was withheld by request. Coronal reconstructions wer e then done. The lung bases show a little bit of dependent atelectasis. There are also some small pleural effusio ns bilaterally, left a little more so than right. Coronary artery calcifications are evident in the left coronary circulation as well as the right. The liver, spleen, pancreas, adrenal glands and kidneys showed no acute findings. The aorta shows ca lcification but no dilation. The gallbladder was generous in size measuring 9.9 cm in length, but no inflammatory changes or wall thickening was appreciated. The bowel is nondistended. There is no sign of obstruction, though there is an abundance of fecal ma terial in the rectosigmoid region. No free air or free fluid was seen. CT of the pelvis showed some thickening of the urinary bladder wall, though it is collapsed due to t he Pringle catheter in place which could contribute to this. No pelvic masses or fluid collection coul d be seen. The patient's lumbar spine and pelvis appeared intact with no bony lesions noted. IMPRESSION: 1. No evidence of bowel distention or obstruction, though there is an abundance of fecal materi al in the rectosigmoid colon. 2. Somewhat large gallbladder without any inflammatory changes around it. 3. Mild basilar atelectasis in the lungs with a minimal amount of fluid, left a little more so than right. 4. Abdominal organs appear normal with no evidence of mass. No bony lesions were seen in the ab dominal/pelvic region. POS: HOME
[2016-09-29] MEDS: Docusate 100 MG CAP PO SCH (22:08)
[2016-09-29] MEDS: Piperacillin/Tazobactam 3.375 GM in Sodium Chloride 0.9% 100 ML IVPB SCH (23:48)
[2016-09-30] MEDS: Acetaminophen 500 MG TAB PO PRN ×2 (00:39→20:44)
[2016-09-30] MEDS: Piperacillin/Tazobactam 3.375 GM in Sodium Chloride 0.9% 100 ML IVPB SCH ×3 (05:29→17:34)
[2016-09-30 06:57] LABS: ALT (SGPT) 61 U/L (8-55); AST (SGOT) 34 U/L (5-34); Albumin 2.6 g/dL (3.4-4.8); Alkaline Phosphatase 61 U/L (40-150); Anion Gap 13 mmol/L (10-20); BUN (Urea Nitrogen) 15 mg/dL (8.4-25.7); Bilirubin, Total 0.8 mg/dL (0.2-1.2); Calc. Creatinine Clearance 61 mL/min (70-130); Calcium 7.5 mg/dL (7.8-10.44); Carbon Dioxide 20 mmol/L (23-31); Chloride 101 mmol/L (98-107); Estimated GFR-MDRD Greater than 90; Globulin 2.2 g/dL (2.4-3.5); Glucose 140 mg/dL (83-110); Potassium 4.1 mmol/L (3.5-5.1); Protein, Total 4.8 g/dL (5.8-8.1); Sodium 130 mmol/L (136-145)
[2016-09-30 06:59] LABS: Anisocytosis SLIGHT = 6-15 cells (100X) (0-5/hpf); Band 2 % (5-11); Elliptocytes SLIGHT = 2-5 cells (100X) (0-1/hpf); Hemoglobin 10.2 g/dL (14.0-18.0); Hypochromia SLIGHT = 6-15 cells (100X) (0-5/hpf); Lymphocytes 30 % (21-51); MDiff Complete? YES; Mean Corpuscular HGB CONC 34.1 g/dL (32.0-36.0); Mean Corpuscular Hemoglobin 26.8 pg (27.0-31.0); Mean Corpuscular Volume 78.5 fl (80.0-94.0); Mean Platelet Volume 7.3 fL (7.4-10.4); Microcytosis SLIGHT = 6-15 cells (100X) (0-5/hpf); Monocytes 9 % (0-10); Neutrophil 56 % (42-75); Platelet Count 106 thou/uL (130-400); Poikilocytosis SLIGHT = 6-15 cells (100X) (0-5/hpf); RBC Distribution Width 15.1 % (11.5-14.5); Reactive Lymphocytes 3 % (0-10); Red Blood Cell (RBC) Count 3.81 mill/uL (4.70-6.10); Rouleaux Formation SLIGHT = 1-5 cells (100X) (None Seen); White Blood Cell (WBC) Count 5.3 thou/uL (4.8-10.8)
[2016-09-30] MEDS: Allopurinol 100 MG TAB PO SCH (08:36)
[2016-09-30] MEDS: Fluconazole 100 MG TAB PO SCH (08:37)
[2016-09-30] MEDS: Metoprolol Tartrate 25 MG TAB PO SCH ×2 (08:38→20:41)
[2016-09-30] MEDS: Tamsulosin HCl 0.4 MG CAP PO SCH (08:38)
[2016-09-30] MEDS: Levemir Flexpen 100 UNITS/ML PEN SC SCH (08:39)
[2016-09-30] MEDS: Polyethylene Glycol 3350 17 GM Packet PO SCH (08:39)
[2016-09-30] MEDS: Enoxaparin Sodium 30 MG/0.3 ML SYRINGE SC SCH (17:34)
[2016-09-30] MEDS: HumaLOG 300 UNITS/3 ML VIAL SC PRN (18:08)
[2016-09-30] MEDS: Docusate 100 MG CAP PO SCH (20:41)
[2016-10-01] MEDS: Piperacillin/Tazobactam 3.375 GM in Sodium Chloride 0.9% 100 ML IVPB SCH ×5 (00:16→23:55)
[2016-10-01] MEDS: Polyethylene Glycol 3350 17 GM Packet PO SCH (08:40)
[2016-10-01] MEDS: Allopurinol 100 MG TAB PO SCH (08:41)
[2016-10-01] MEDS: Fluconazole 100 MG TAB PO SCH (08:42)
[2016-10-01] MEDS: Metoprolol Tartrate 25 MG TAB PO SCH ×2 (08:42→21:05)
[2016-10-01] MEDS: Tamsulosin HCl 0.4 MG CAP PO SCH (08:42)
[2016-10-01] MEDS: Levemir Flexpen 100 UNITS/ML PEN SC SCH (08:44)
[2016-10-01] MEDS: Enoxaparin Sodium 30 MG/0.3 ML SYRINGE SC SCH (17:44)
[2016-10-01] MEDS: Docusate 100 MG CAP PO SCH (21:05)
[2016-10-02] MEDS: Piperacillin/Tazobactam 3.375 GM in Sodium Chloride 0.9% 100 ML IVPB SCH ×4 (05:44→23:48)
[2016-10-02] MEDS: Allopurinol 100 MG TAB PO SCH (08:58)
[2016-10-02] MEDS: Tamsulosin HCl 0.4 MG CAP PO SCH (08:58)
[2016-10-02] MEDS: Fluconazole 100 MG TAB PO SCH (08:58)
[2016-10-02] MEDS: Polyethylene Glycol 3350 17 GM Packet PO SCH (08:59)
[2016-10-02] MEDS: Metoprolol Tartrate 25 MG TAB PO SCH ×2 (09:01→20:56)
[2016-10-02] MEDS: Levemir Flexpen 100 UNITS/ML PEN SC SCH (09:07)
[2016-10-02] MEDS: Enoxaparin Sodium 30 MG/0.3 ML SYRINGE SC SCH (17:41)
[2016-10-02] MEDS: Acetaminophen 500 MG TAB PO PRN (20:49)
[2016-10-02] MEDS: Docusate 100 MG CAP PO SCH (20:49)
[2016-10-03] MEDS: Piperacillin/Tazobactam 3.375 GM in Sodium Chloride 0.9% 100 ML IVPB SCH ×4 (06:35→23:42)
[2016-10-03] MEDS: Allopurinol 100 MG TAB PO SCH (08:37)
[2016-10-03] MEDS: Fluconazole 100 MG TAB PO SCH (08:38)
[2016-10-03] MEDS: Polyethylene Glycol 3350 17 GM Packet PO SCH (08:38)
[2016-10-03] MEDS: Tamsulosin HCl 0.4 MG CAP PO SCH (08:38)
[2016-10-03] MEDS: Metoprolol Tartrate 25 MG TAB PO SCH ×2 (08:39→21:10)
[2016-10-03] MEDS: Levemir Flexpen 100 UNITS/ML PEN SC SCH (08:54)
[2016-10-03] MEDS: Enoxaparin Sodium 30 MG/0.3 ML SYRINGE SC SCH (17:56)
[2016-10-03] MEDS: HumaLOG 300 UNITS/3 ML VIAL SC PRN (17:58)
[2016-10-03] MEDS: Docusate 100 MG CAP PO SCH (21:10)
[2016-10-04] MEDS: Piperacillin/Tazobactam 3.375 GM in Sodium Chloride 0.9% 100 ML IVPB SCH ×3 (05:59→17:38)
[2016-10-04] MEDS: Tamsulosin HCl 0.4 MG CAP PO SCH (08:41)
[2016-10-04] MEDS: Fluconazole 100 MG TAB PO SCH (08:41)
[2016-10-04] MEDS: Polyethylene Glycol 3350 17 GM Packet PO SCH (08:41)
[2016-10-04] MEDS: Allopurinol 100 MG TAB PO SCH (08:41)
[2016-10-04] MEDS: Metoprolol Tartrate 25 MG TAB PO SCH ×2 (08:41→21:46)
[2016-10-04] MEDS: Levemir Flexpen 100 UNITS/ML PEN SC SCH (08:51)
[2016-10-04] MEDS: Enoxaparin Sodium 30 MG/0.3 ML SYRINGE SC SCH (17:38)
[2016-10-04] MEDS: Docusate 100 MG CAP PO SCH (21:46)
[2016-10-05] MEDS: Piperacillin/Tazobactam 3.375 GM in Sodium Chloride 0.9% 100 ML IVPB SCH ×4 (00:06→18:29)
[2016-10-05] MEDS: Levemir Flexpen 100 UNITS/ML PEN SC SCH (09:13)
[2016-10-05] MEDS: Fluconazole 100 MG TAB PO SCH (09:13)
[2016-10-05] MEDS: Metoprolol Tartrate 25 MG TAB PO SCH ×2 (09:13→20:28)
[2016-10-05] MEDS: Allopurinol 100 MG TAB PO SCH (09:13)
[2016-10-05] MEDS: Tamsulosin HCl 0.4 MG CAP PO SCH (09:13)
[2016-10-05] MEDS: Polyethylene Glycol 3350 17 GM Packet PO SCH (09:15)
[2016-10-05] MEDS ORDERED: Sodium Chloride 0.9% 200 ML ONE (15:09)
[2016-10-05] MEDS: HumaLOG 300 UNITS/3 ML VIAL SC PRN (18:09)
[2016-10-05] MEDS: Enoxaparin Sodium 30 MG/0.3 ML SYRINGE SC SCH (18:09)
[2016-10-05] MEDS: Loratadine 10 MG TAB PO PRN (20:28)
[2016-10-05] MEDS: Docusate 100 MG CAP PO SCH (21:56)
[2016-10-06] MEDS: Piperacillin/Tazobactam 3.375 GM in Sodium Chloride 0.9% 100 ML IVPB SCH ×5 (01:10→17:38)
[2016-10-06] MEDS: Levemir Flexpen 100 UNITS/ML PEN SC SCH (09:41)
[2016-10-06] MEDS: Tamsulosin HCl 0.4 MG CAP PO SCH (09:42)
[2016-10-06] MEDS: Polyethylene Glycol 3350 17 GM Packet PO SCH (09:43)
[2016-10-06] MEDS: Metoprolol Tartrate 25 MG TAB PO SCH ×2 (09:43→21:48)
[2016-10-06] MEDS: Allopurinol 100 MG TAB PO SCH (09:43)
[2016-10-06] MEDS: Enoxaparin Sodium 30 MG/0.3 ML SYRINGE SC SCH (17:39)
[2016-10-06] MEDS: HumaLOG 300 UNITS/3 ML VIAL SC PRN (17:43)
[2016-10-06] MEDS: Loratadine 10 MG TAB PO PRN (21:48)
[2016-10-06] MEDS: Docusate 100 MG CAP PO SCH (21:48)
[2016-10-07] MEDS: Levemir Flexpen 100 UNITS/ML PEN SC SCH (08:16)
[2016-10-07] MEDS: Polyethylene Glycol 3350 17 GM Packet PO SCH (08:18)
[2016-10-07] MEDS: Tamsulosin HCl 0.4 MG CAP PO SCH (08:20)
[2016-10-07] MEDS: Allopurinol 100 MG TAB PO SCH (08:20)
[2016-10-07] MEDS: Metoprolol Tartrate 25 MG TAB PO SCH ×2 (08:21→21:22)
[2016-10-07] MEDS: Enoxaparin Sodium 30 MG/0.3 ML SYRINGE SC SCH (17:24)
[2016-10-07] MEDS: HumaLOG 300 UNITS/3 ML VIAL SC PRN (17:45)
[2016-10-07] MEDS: Loratadine 10 MG TAB PO PRN (21:22)
[2016-10-07] MEDS: Docusate 100 MG CAP PO SCH (21:23)
[2016-10-08] MEDS: Acetaminophen 500 MG TAB PO PRN (06:14)
[2016-10-08] MEDS: Allopurinol 100 MG TAB PO SCH (07:44)
[2016-10-08] MEDS: Metoprolol Tartrate 25 MG TAB PO SCH ×2 (07:45→21:10)
[2016-10-08] MEDS: Baclofen 10 MG TAB PO SCH ×2 (07:45→21:11)
[2016-10-08] MEDS: Tamsulosin HCl 0.4 MG CAP PO SCH (07:46)
[2016-10-08] MEDS: Polyethylene Glycol 3350 17 GM Packet PO SCH (07:47)
[2016-10-08] MEDS: Levemir Flexpen 100 UNITS/ML PEN SC SCH (07:48)
[2016-10-08] MEDS: Enoxaparin Sodium 30 MG/0.3 ML SYRINGE SC SCH (20:03)
[2016-10-08] MEDS: Loratadine 10 MG TAB PO PRN (21:10)
[2016-10-08] MEDS: Docusate 100 MG CAP PO SCH (22:22)
[2016-10-09 06:28] VITALS: BP 153/79; TEMP 98.3
[2016-10-09] MEDS: Baclofen 10 MG TAB PO SCH (08:17)
[2016-10-09] MEDS: Allopurinol 100 MG TAB PO SCH (08:17)
[2016-10-09] MEDS: Tamsulosin HCl 0.4 MG CAP PO SCH (08:17)
[2016-10-09] MEDS: Metoprolol Tartrate 25 MG TAB PO SCH (08:18)
[2016-10-09] MEDS: Polyethylene Glycol 3350 17 GM Packet PO SCH (08:18)
[2016-10-09] MEDS: Levemir Flexpen 100 UNITS/ML PEN SC SCH (08:19)
[2016-10-09] MEDS: HumaLOG 300 UNITS/3 ML VIAL SC PRN ×2 (08:19→13:28)
[2016-10-09] MEDS ORDERED: predniSONE 20 MG TAB PO SCH (09:00)
[2016-10-09] MEDS: HYDROcodone/Acetaminophen 5/325 mg Tablet PO PRN (14:15)
--- NOTE | 2016-10-09 17:09 | DIS ---
DATE OF ADMISSION: 08/29/2016 DATE OF DISCHARGE: 10/09/2016 ADMISSION DIAGNOSES: Lymphoma, parathoracic mass causing cord compression, thoracic fracture status post vertebroplasty, physical deconditioning, type 2 diabetes mellitus, urinary retention, hypertension. DISCHARGE DIAGNOSES: Lymphoma, parathoracic mass causing cord compression, thoracic fracture status post vertebroplasty, physical deconditioning, type 2 diabetes mellitus, urinary retention, hypertension, with urinary tract infection - now resolved and gout - resolved. On 09/03/2016 right knee x-ray showed significant swelling and joint effusion, and moderate arthritic change. CXR showed no acute thoracic findings, known paravertebral mass is not visible. On 09/29/2016, abdomen and pelvis CT showed no evidence of bowel distention or obstruction. There is an abundance of fecal material in the rectosigmoid colon somewhat enlarged gallbladder without any inflammatory changes around it, mild basilar atelectasis in the lungs with minimal amount of fluid left a little more so than right. Abdominal organs appeared normal with no evidence of mass, no bony lesions were seen in the abdominal pelvic region. HOSPITAL COURSE: An 86-year-old male who presented as a transfer from [facility] in [place], so that he may participate with physical therapy while undergoing daily radiation treatments for 3 weeks. The patient has known lymphoma with subsequent development of a parathoracic mass causing cord compression and associated progressive weakness of his lower extremities. Due to these issues, he was advised to participate with PT/OT and receive his daily weekday radiation treatments for 3 weeks and upon that time, decide on further treatment modalities based on his response. After 3 weeks of radiation therapy were completed, he was able to meet with Oncology, Dr. Dobson and Dr. Barahona, Radiation Oncology and there was deemed to be a decrease in size of the parathoracic mass. Thus, further plans were made including continuation of chemotherapy, which he received his third out of planned 6 treatments on 2016 with next scheduled chemo on 10/29/2016. He is to follow up with Dr. Barahona , Radiation Oncology on 10/30/2016. The patient was initially on dexamethasone taper; however, per Dr. Dobson was advised to change this to a 5-day course of 100 mg of prednisone, status post each chemotherapy treatment. With the patient having received his third round of chemo on 10/08/2016 yesterday, he is now to be on his 5 day treatment course of 100 mg p.o. prednisone. The patient has been quite slow to progress with physical therapy to this point. He has displayed symptoms of anxiety and depression during his stay and thus was started on Zoloft; this has been moderately beneficial. The patient's stay was complicated by a urinary tract infection; he does have an indwelling Pringle secondary to urinary retention. He was treated per his urinary cultures for Pseudomonas with a 1-week course of Zosyn and was successfully treated this urinary tract infection. At this point, he is to proceed with the plans as scheduled per oncology/radiation Oncology and he will transition to [facility] to continue his physical therapy onward. DISPOSITION: The patient will discharge to [facility] today for continued medical care and physical therapy and will follow up with Dr. Dobson Oncology, and Dr. Barahona, Radiation Oncology as scheduled. DISCHARGE MEDICATIONS: Winnie 5/325 p.o. q.4 hours p.r.n., allopurinol 300 mg p.o. daily, baclofen 10 mg p.o. b.i.d., Dulcolax 10 mg p.o. daily p.r.n. constipation, Levemir 20 units daily, metoprolol tartrate 25 mg p.o. b.i.d., Protonix 40 mg p.o. daily, prednisone 100 mg p.o. daily x5 days after each chemo treatment, Zoloft 50 mg p.o. daily, Flomax 0.4 mg p.o. daily. MTDD
[2016-10-30] MEDS ORDERED: predniSONE 20 MG TAB PO SCH (09:00)
== END 2016-10-09 14:45 | DRG 841 ==
LOC: BURMED 14:50
PROVIDERS: ADMIT Family Medicine; ATTEND Family Medicine
DX: C83.32 Diffuse large B-cell lymphoma, intrathoracic lymph nodes (principal); G95.29 Other cord compression; N39.0 Urinary tract infection, site not specified; B96.5 Pseudomonas (aeruginosa) (mallei) (pseudomallei) as the cause of diseases classified elsewhere; E11.9 Type 2 diabetes mellitus without complications; I10 Essential (primary) hypertension; R33.9 Retention of urine, unspecified; F41.8 Other specified anxiety disorders; M17.11 Unilateral primary osteoarthritis, right knee; M10.9 Gout, unspecified; Z87.311 Personal history of (healed) other pathological fracture
CPT/HCPCS: 36415; 36416; 71010; 74177; 80053; 81001; 81003; 81015; 82728; 83605; 84550; 85025; 87077; 87086; 87186; A4216; G8978-GP-CM; G8979-GP-CK; G8987-GO-CM; G8988-GO-CJ; J0696; J1650; J1815; J2543; J7050; J7506; J8540